=== PATIENT | female | born 1990 | race Caucasian/White ===

== ENCOUNTER 2017-11-03 15:20 | Outpatient (CLI) | payer OTHER | END 2017-11-03 15:21 | disposition home or self-care (01) | LOC: DTY/OP 15:20 | PROVIDERS: ATTEND Specialist | DX: Z01.818 Encounter for other preprocedural examination (principal); E66.01 Morbid (severe) obesity due to excess calories; Z71.3 Dietary counseling and surveillance | CPT/HCPCS: 97802 ==

== ENCOUNTER 2017-12-15 16:08 | Outpatient (CLI) | payer OTHER ==
[2017-12-15 18:32] LABS: BHCG - Serum Negative (NEGATIVE); Pregs Control Background? CLEAR/WHITE (CLR/WHITE); Pregs Control Bar Appear? YES (CONTROL BAR)
== END 2017-12-15 16:09 | disposition home or self-care (01) ==
LOC: LABBT 16:08
PROVIDERS: ATTEND Specialist
DX: Z01.812 Encounter for preprocedural laboratory examination (principal); E66.01 Morbid (severe) obesity due to excess calories
CPT/HCPCS: 84703

== ENCOUNTER 2017-12-15 17:00 | Inpatient (IN) | payer OTHER ==
[2017-12-15 16:39] VITALS: BMI 36.2
--- NOTE | 2017-12-16 07:12 | HP ---
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 She hopes to f inish this program 03/2018. 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 She has tr ied numerous weight loss efforts on her own without durable success. She has tried a balanced diet, intermittent fasting, Jerrell's diet, keto diet, used Topamax has lost 10-15 pounds without durable suc cess. She is followed by Dr. Bello. The patient lives in [place] and her family lives there too. She is single, 0, para 0. She works with a it trainer in [place] 2-3 times a week individual training, and has not enjoyed any successful weight loss. She has attended our bariatric seminar co nsidering weight loss options. She is interested in laparoscopic sleeve gastrectomy. She has a rela tive that attended our preoperative evaluation, but decided not to proceed with the operation. The p atient's comorbidities include hypertension and elevated triglycerides. She has experienced GERD rec ently since she has gained weight. She does not have any problems with GERD before she was overweigh t. She was recently started on a 2-week course of [id number] Nexium. It is too early to tell whether this helps her or not. She denies any biliary symptoms. She is 5 foot 1, 192 pounds, 36 BMI . She is followed by Dr. Wil Bello. TOBACCO: None. ALCOHOL: None. ALLERGIES: None. MEDICATIONS: Lisinopril 20 mg a day, multivitamins daily, [id number] Nexium daily. PAST MEDICAL HISTORY: Hypertension, elevated triglycerides, normal cholesterol, GERD since she has g ained weight. PAST SURGICAL HISTORY: Nasal surgery, left eye surgery. REVIEW OF SYSTEMS: Ten point noncontributory. PHYSICAL EXAMINATION: VITAL SIGNS: Height 5 foot 1, 192 pounds, 36.3 BMI, 94 heart rate, 127/45, and 98.2 degrees. HEENT: Unremarkable. LUNGS: Clear to auscultation. CARDIAC: Regular rate and rhythm without murmur or gallop. ABDOMEN: Soft, obese, nontender. EXTREMITIES: Unremarkable. No ankle edema, no venous stasis changes. Palpable pedal pulses. NEUROLOGIC: Intact. LYMPH: Axilla, neck, groins without lymphadenopathy. ASSESSMENT AND PLAN: Morbid obesity with comorbidities of hypertension, elevated triglycerides, and recent onset of reflux. She has attended our seminar and interested in laparoscopic sleeve gastrecto my. She understands the risks of infection, bleeding, reoperation, staple line leakage and understan ds that she will have to be an active participant, making good food choices to enjoy success in her [facility] journey. She understands that she can optimize her success with an exercise program. The yared mcclure has committed to the program, committed to follow up. She will be seeing the dietitian today and psychology today and we will schedule her surgery whenever she is ready.
--- NOTE | 2017-12-16 07:15 | ADD-HP ---
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 She has been through our bariatric seminar, s andre tobias preoperatively, seen a psychologist, obtained bariatric labs, and visited with our dietitian a nd now is ready to proceed with laparoscopic sleeve gastrectomy. She understands the risk of infecti on, bleeding, reoperation, and understands to be successful, she will need to make good food choices and participate in postoperative followup. She understands the risks and benefits and I have reviewe d the concerns with her in the office. Please see her recent history and physical details of her pas t history. When I initially saw her, 11/03/2017, 192 pounds, BMI of 36, it has essentially unchanged . The patient has been treated for hypertension, although her blood pressure is normal. She has his tory of GERD without esophagitis, but only related to weight gain and triglycerides. Plan is laparos copic sleeve gastrectomy. The patient is followed by JENIFER Pearce in [place]. PHYSICAL EXAMINATION: VITAL SIGNS: Height 5 feet 1 inches, 193 pounds, 36 BMI. LUNGS: Clear to auscultation. CARDIAC: Regular rate and rhythm without murmur or gallop. ABDOMEN: Soft and nontender. ASSESSMENT: Morbid obesity. PLAN: Laparoscopic sleeve gastrectomy.
[2017-12-21] MEDS ORDERED: Heparin 5,000 UNITS/ML VIAL ONE (08:44)
[2017-12-21] MEDS ORDERED: Scopolamine 1.5 mg/72 hour Patch ONE (08:44)
[2017-12-21] MEDS ORDERED: Midazolam HCl 2 mg/2 ml Vial ONE (08:45)
[2017-12-21] MEDS ORDERED: Ketorolac Tromethamine 30 MG/ML VIAL ONE (08:45)
[2017-12-21] MEDS ORDERED: cefOXitin 2 GM, Syringe 1 ML in Sterile Water 10 ML SLOW IVP SCH (09:00)
[2017-12-21] MEDS ORDERED: Ondansetron ODT 4 MG TAB ONE (10:45)
[2017-12-21] MEDS ORDERED: Bupivacaine HCl 0.5%/Epinephrine 1:200,000/PF 30 ml Vial ONE (11:12)
[2017-12-21] MEDS ORDERED: Fentanyl 100 MCG/2 ML VIAL ONE ×2 (11:16→13:20)
[2017-12-21] MEDS ORDERED: diphenhydrAMINE 50 MG/ML VIAL IVP PRN (11:57)
[2017-12-21] MEDS ORDERED: Morphine 4 MG/ML VIAL SLOW IVP PRN ×2 (11:57)
[2017-12-21] MEDS ORDERED: hydrALAZINE 20 MG/ML VIAL SLOW IVP PRN (11:57)
[2017-12-21] MEDS ORDERED: Dextrose 50% Abboject 50 ML SYRINGE SLOW IVP PRN (11:57)
[2017-12-21] MEDS ORDERED: Ondansetron HCl/PF 4 MG/2 ML Vial IVP PRN ×2 (11:57→12:42)
[2017-12-21] MEDS ORDERED: Dextrose 5% in Water 1,000 ML IV PRN (11:57)
[2017-12-21] MEDS ORDERED: Ondansetron ODT 8 MG TAB PO PRN (12:00)
[2017-12-21] MEDS ORDERED: Ondansetron ODT 8 MG TAB SL PRN (12:00)
[2017-12-21] MEDS ORDERED: Ondansetron ODT 4 MG TAB PO PRN (12:00)
[2017-12-21] MEDS ORDERED: Ondansetron ORAL SOLN. 4 MG/5 ML UDCUP PO PRN ×2 (12:00)
[2017-12-21] MEDS ORDERED: Lidocaine 1% PF 5 ML VIAL ONE (12:28)
[2017-12-21] MEDS ORDERED: Glycopyrrolate 0.2 MG/ML 5 ML SYRINGE ONE (12:28)
[2017-12-21] MEDS ORDERED: Succinylcholine Chloride 20 MG/ML 10 ml SYRINGE FS ONE (12:28)
[2017-12-21] MEDS ORDERED: Dexamethasone 20 MG/5 ML VIAL ONE (12:28)
[2017-12-21] MEDS ORDERED: PROPOFOL 200 MG/20 ML VIAL ONE (12:28)
[2017-12-21] MEDS ORDERED: Promethazine HCl 25 MG/ML VIAL IM PRN (12:42)
[2017-12-21] MEDS ORDERED: Promethazine HCl 25 MG/ML VIAL SLOW IVP PRN (12:42)
--- NOTE | 2017-12-21 13:27 | OP ---
DATE OF PROCEDURE: 12/21/2017 PREOPERATIVE DIAGNOSES: Morbid obesity, hypertension, BMI 36, 192 pounds. PROCEDURE: Laparoscopic sleeve gastrectomy, 36 Polish bougie, staple line within 4 cm of the pylorus , completion upper endoscopy. SURGEON: Maik Gomez M.D. ANESTHESIA: General. ESTIMATED BLOOD LOSS: Less than 10 mL. ANESTHESIA: 0.25% Marcaine with epinephrine 60 volume used. PROCEDURE: The patient was taken to the operating room where under general anesthesia, abdomen was p repared with ChloraPrep, draped in routine fashion. Local anesthetic infiltrated about skin and subc utaneous tissue about each port site. Total volume used. Supraumbilical incision made. Pneumoperit oneum to 15 mmHg obtained the Veress needle, replacing it with a 5 port and laparoscope inserted. Bi lateral far lateral subcostal incision made and 5 ports placed. Bilateral midclavicular upper abdomi nal incision made and a 15 port placed on the left and 12 port placed on the right. Subxiphoid incis ion made and a Nathansen liver retractor placed under laparoscopic visualization retracting the left lobe of the liver anteriorly. The liver was soft and malleable and not fatty. Generalized survey of the abdominal cavity was unremarkable. Gastrocolic ligament taken down adjacent to the greater curv ature of the stomach distally and gastrocolic ligament and gastrosplenic ligaments divided with the L igaSure along the greater curvature of the stomach up to the angle of His. Fundus mobilized. Ornamental Ironworking Supervisor ior attachments taken down with the LigaSure. Bougie placed by Anesthesia orally down the esophagus and into the stomach, visualizing the process laparoscopically, placing the tip of the bougie near th e pylorus. Initial sleeve gastrectomy performed firing the green load CARLO Endo stapler dividing the antrum within 4 cm of the pylorus, and advancing it along the greater curvature, along the bougie te ing care to not over tighten it near the incisura, adequate space was left respecting this. A gold f lawrence, then blue load stapler was used for the sleeve gastrectomy, staple line carried up, staying left lateral to the angle of His. The stomach removed through the 15 mm port site and fascia approximate d with 0 Vicryl GraNee needle under laparoscopic visualization. Closed this defect and sleeve gastre ctomy specimen removed and submitted to Pathology. Staple line inspected and noted to be hemostatic. I then performed an upper endoscopy, placed the endoscope per os and under direct visualization scott n the esophagus into the stomach, visualizing the pylorus. There was no bleeding. There was adequat e space and easy passage of the scope. Scope withdrawn deflating the stomach, noting good hemostasis and no problems as it was checked under water. This was visualized laparoscopically. Once the scop e was removed staple lines inspected. Good hemostasis noted. Liver retractor removed. Irrigant and pneumoperitoneum evacuated. Good hemostasis noted. All skin incisions approximated with interrupte d subdermal 4-0 Monocryl and DermaGlue applied.
[2017-12-21] MEDS: Ketorolac Tromethamine 30 MG/ML VIAL IVP SCH ×3 (14:44→23:02)
[2017-12-21] MEDS: Acetaminophen 1,000 MG in Premix Bag 1 BAG IVPB SCH ×3 (14:44→23:02)
[2017-12-21] MEDS: 1/2 NS w/KCL 20 mEq 1,000 ML IV SCH (18:06)
[2017-12-21] MEDS: Hydrocodone-Acetamin 15 ML UDCUP PO PRN ×2 (18:07→23:02)
[2017-12-21] MEDS ORDERED: Enoxaparin Sodium 40 MG/0.4 ML SYRINGE SC SCH (21:00)
[2017-12-22] MEDS: 1/2 NS w/KCL 20 mEq 1,000 ML IV SCH ×2 (03:18→03:19)
[2017-12-22 04:41] LABS: #Lymphocytes 2.4 thou/uL (1.20-3.40); #Monocytes 0.9 thou/uL (0.11-0.59); #Neutrophils 14.7 thou/uL (1.40-6.50); %Basophils 0.1 % (0.0-1.0); %Eosinophils 0.2 % (0.0-10.0); %Lymphocytes 13.1 % (21.0-51.0); %Monocytes 5.2 % (0.0-10.0); %Neutrophils 81.4 % (42.0-75.0); Hemoglobin 12.2 g/dL (12.0-16.0); Mean Corpuscular HGB CONC 34.7 g/dL (32.0-36.0); Mean Corpuscular Hemoglobin 31.7 pg (27.0-31.0); Mean Corpuscular Volume 91.3 fl (81.0-99.0); Mean Platelet Volume 5.7 fL (7.4-10.4); Platelet Count 306 thou/uL (130-400); RBC Distribution Width 11.4 % (11.5-14.5); Red Blood Cell (RBC) Count 3.87 mill/uL (4.20-5.40); White Blood Cell (WBC) Count 18.1 thou/uL (4.8-10.8)
[2017-12-22] MEDS: Hydrocodone-Acetamin 15 ML UDCUP PO PRN (04:51)
[2017-12-22] MEDS: Ketorolac Tromethamine 30 MG/ML VIAL IVP SCH (05:00)
[2017-12-22] MEDS: Acetaminophen 1,000 MG in Premix Bag 1 BAG IVPB SCH (05:01)
[2017-12-22 05:03] LABS: Anion Gap 11 mmol/L (10-20); BUN (Urea Nitrogen) 8 mg/dL (7.0-18.7); Calc. Creatinine Clearance 163 mL/min (70-130); Carbon Dioxide 21 mmol/L (22-29); Chloride 108 mmol/L (98-107); Estimated GFR-MDRD Greater than 90; Glucose 96 mg/dL (70-105); Potassium 4.3 mmol/L (3.5-5.1); Sodium 136 mmol/L (136-145)
--- NOTE | 2017-12-22 06:38 | PRG ---
DATE OF SERVICE: 12/22/2017 HISTORY: Ms. Lang is doing well today. She is status post laparoscopic sleeve gastrectomy yester day. She has ambulated well. She is tolerating liquids. She has not had any nausea or vomiting. PHYSICAL EXAMINATION: VITAL SIGNS: Temperature 98.2 degrees, 70, 16, 90/63. LABORATORY: This morning her white count is 18, hemoglobin 12. Basic metabolic profile essentially normal. LUNGS: Clear to auscultation. CARDIAC: Regular rate and rhythm without murmur or gallop. ABDOMEN: Soft, nontender, good bowel sounds. Surgical wounds are clean and dry. ASSESSMENT AND PLAN: Doing well status post laparoscopic sleeve gastrectomy. We will plan discharge home today. She will advance her diet per bariatric protocol. She will take Lortab elixir for pain . She will take Ultram as needed and Tylenol as needed. She will take Prilosec for 3 months. Donya w up in my office in 1-2 weeks.
[2017-12-22] MEDS ORDERED: traMADol HCl 50 MG TAB PO PRN ×2 (07:00)
[2017-12-22] MEDS ORDERED: Acetaminophen 500 MG TAB PO PRN (07:00)
[2017-12-22 08:26] VITALS: BP 97/63; TEMP 97.5
[2017-12-22] MEDS ORDERED: Pantoprazole 40 MG VIAL IVP SCH (09:00)
--- NOTE | 2017-12-22 11:19 | DIS ---
DATE OF ADMISSION: 12/21/2017 DATE OF DISCHARGE: 12/22/2017 DISCHARGE DIAGNOSES: Morbid obesity, 5 foot, 192 pounds, 36 body mass index, hypertension, elevated triglycerides, normal cholesterol, gastroesophageal reflux disease. Since she has gained weight, no prior history of premorbid obesity and GERD. 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 She has tried numerous weight loss efforts without durable success and attended our bariatric seminar and went to our preoperative bariatric options, programs and evaluation and pre sents for laparoscopic sleeve gastrectomy and undergoing that procedure and postoperatively convalesc ing to do well. She was discharged home with [id number] Tylenol or ibuprofen (on rare occasion ) for pain, otherwise using Ultram and/or Lortab Elixir for discomfort. Diet and activity as tolerat ed. No lifting restrictions. Follow up in my office in 2 weeks.
== END 2017-12-22 10:43 | disposition home or self-care (01) | DRG 621 ==
LOC: SURG A 12-21 07:58
PROVIDERS: ADMIT Specialist; ATTEND Specialist
PROC: 0DB64Z3 Excision of Stomach, Percutaneous Endoscopic Approach, Vertical (ICD-10-PCS; principal; 2017-12-21)
DX: E66.01 Morbid (severe) obesity due to excess calories (principal); I10 Essential (primary) hypertension; Z68.36 Body mass index [BMI] 36.0-36.9, adult; K21.9 Gastro-esophageal reflux disease without esophagitis
CPT/HCPCS: 36415; 80048; 85025; 88307; 88312; 94760; 96374; A4216; J0131; J0670; J0694; J1100; J1644; J1650; J1885; J2001; J2250; J2270; J2704; J3010; Q0162

== ENCOUNTER 2018-06-21 07:37 | Observation (INO) | payer OTHER ==
[2018-06-21 07:49] LABS: #Basophils 0.2 thou/uL (0.0-0.2); #Eosinphils 0.2 thou/uL (0.0-0.7); #Lymphocytes 5.4 thou/uL (1.20-3.40); #Monocytes 0.8 thou/uL (0.11-0.59); #Neutrophils 5.8 thou/uL (1.40-6.50); %Basophils 1.3 % (0.0-1.0); %Eosinophils 1.6 % (0.0-10.0); %Lymphocytes 43.6 % (21.0-51.0); %Monocytes 6.2 % (0.0-10.0); %Neutrophils 47.3 % (42.0-75.0); Hemoglobin 15.3 g/dL (12.0-16.0); Mean Corpuscular HGB CONC 31.3 g/dL (32.0-36.0); Mean Corpuscular Hemoglobin 29.2 pg (27.0-31.0); Mean Corpuscular Volume 93.5 fL (78.0-98.0); Mean Platelet Volume 6.4 fL (7.4-10.4); Platelet Count 336 thou/uL (130-400); RBC Distribution Width 12.3 % (11.5-14.5); Red Blood Cell (RBC) Count 5.25 mill/uL (4.20-5.40); White Blood Cell (WBC) Count 12.3 thou/uL (4.8-10.8)
[2018-06-21 08:12] LABS: ALT (SGPT) Less than 7 U/L (8-55); AST (SGOT) 12 U/L (5-34); Albumin 4.2 g/dL (3.5-5.0); Alkaline Phosphatase 65 U/L (40-150); Anion Gap 16 mmol/L (10-20); BUN (Urea Nitrogen) 9 mg/dL (7.0-18.7); Bilirubin, Total 0.4 mg/dL (0.2-1.2); CK (CPK) 33 U/L (29-168); Calc. Creatinine Clearance 0 mL/min (70-130); Calcium 9.2 mg/dL (7.8-10.44); Carbon Dioxide 17 mmol/L (22-29); Chloride 111 mmol/L (98-107); Estimated GFR-MDRD 84; Globulin 2.9 g/dL (2.4-3.5); Glucose 111 mg/dL (70-105); Potassium 3.7 mmol/L (3.5-5.1); Protein, Total 7.1 g/dL (6.0-8.3); Sodium 140 mmol/L (136-145)
[2018-06-21 08:16] LABS: CKMB 0.3 ng/mL (0-6.6); Troponin I Less than 0.010 ng/mL (< 0.028)
[2018-06-21 08:53] LABS: BHCG - Serum Negative (NEGATIVE); Pregs Control Background? CLEAR/WHITE (CLR/WHITE); Pregs Control Bar Appear? YES (CONTROL BAR)
[2018-06-21 08:55] LABS: Bilirubin Small (Negative); Blood, Urine Negative (Negative); Clarity CLOUDY (Clear); Glucose, Urine (Dipstick) Negative (Negative); Leukocyte Small (Negative); Nitrite Negative (Negative); Protein, Urine (Dipstick) 100 mg/dL (Neg-Trace)
[2018-06-21 08:56] LABS: Bacteria/HPF Rare-Few HPF (None Seen); Pregnancy Test - Urine (BHCG) Negative (Negative); Pregu Control Background? CLEAR/WHITE (CLR/WHITE); Pregu Control Bar Appear? YES (CONTROL BAR)
[2018-06-21 08:57] LABS: Pathc Cast-AUWi Flag 5.23 (0-2.49)
[2018-06-21 09:08] LABS: Hyaline Casts/LPF 0-3 HYALINE CAST LPF (0-3 Hyaline); Manual Microscopic Reviewed? No Path Casts Seen; RBC/HPF 0-3 HPF (0-3); Renal Epithelial 0-3 HPF (0-3); Transitional Epithelial 0-3 HPF (0-3)
--- NOTE | 2018-06-21 09:44 | RAD ---
CHEST 2 VIEWS: HISTORY: Syncope. COMPARISON: None. FINDINGS: Lungs are clear. No pneumothorax or effusion. Cardiac silhouette and mediastinal contours are withi n normal limits. No acute osseous abnormality. Surgical clips along the expected location of the st omach. IMPRESSION: No acute intrathoracic abnormality. POS: [facility]
[2018-06-21] MEDS ORDERED: Metoclopramide HCl 10 MG/2 ML VIAL ONE (09:46)
[2018-06-21] MEDS ORDERED: Ondansetron PF 4 MG/2 ML Vial IVP PRN (11:39)
[2018-06-21] MEDS ORDERED: Acetaminophen 325 MG TAB PO PRN (11:39)
[2018-06-21] MEDS ORDERED: Ondansetron ODT 4 MG TAB PO PRN (11:39)
[2018-06-21 11:57] VITALS: BMI 25.9
[2018-06-21] MEDS: Sodium Chloride 0.9% 1,000 ML IV SCH ×2 (12:50→19:50)
--- NOTE | 2018-06-21 13:23 | PDOC.EVN ---
Event Note - Event Note Event Note: I have interviewed, examined and discussed pt with Alejandrina LUCIANO regarding near syncopal event. Reviewed all pertinent hx, labs and radiographs. Plan for IVF's, telemetry monitoring and 2D echo. Please see dictated H&P for full details.
[2018-06-21] MEDS: Thiamine HCl 200 MG/2 ML VIAL SLOW IVP SCH (14:21)
--- NOTE | 2018-06-21 15:35 | HP ---
DATE OF ADMISSION: 06/21/2018 Patient was seen approximately 11:00 a.m. CODE STATUS: FULL. CHIEF COMPLAINT: Near syncope, nausea and vomiting. 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 She was able to sit down and initially felt better, so she went onto the next room where she had one episode of vomiting. She reports she immediately felt the need to have a bowel movement and on the way to the bathroom, she felt lightheaded again and passed out. Coworkers denied that she hit her head, reported bringing her back to the nurse's station and tried to take her vitals. At that point, her heart rate was in the 20s to 30s for several minutes and they had difficulty obtaining her blood pressure. Nursing personnel called a lamont ayala and she was transported to the ER where her vital signs returned to normal, pulse initially was 82, respirations were 18 and blood pressure was 92/61. Currently , she is feeling better. Denies any complaints at this time. She denies any history of any similar events in the past. Past medical history includes a gastric sleeve surgery in 11/2017 and reports she has lost close to 60 pounds. While she was in the ER, EKG and labs were unremarkable. She reports that her family and friends over the last week have had either the flu or the stomach bug. She was admitted to the observation unit for further management. PAST MEDICAL HISTORY: She reports she was diagnosed with hypertension prior to her gastric sleeve surgery. Since the surgery, she has not needed to take any medication. PAST SURGICAL HISTORY: Positive for a gastric sleeve in November of this year. Denies any other surgical or medical history. SOCIAL HISTORY: Patient lives at home. Does not smoke. She is a social drinker. Denies any illegal drug use. FAMILY HISTORY: Pertinent only for several different kinds of cancer. No history of any cardiac history or strokes. REVIEW OF SYSTEMS: CONSTITUTIONAL: Negative review of systems. HISTORIAN: Denies chills or fever. Denies eye pain or vision changes. ENT: Denies any rhinorrhea, sore throat, or voice changes. CARDIOVASCULAR: Denies chest pain. Denies palpitations. RESPIRATORY: Denies cough, denies shortness of breath. GASTROINTESTINAL: Denies abdominal pain, denies constipation, denies diarrhea. Reports some nausea this morning. Reports one episode of vomiting, denies any diarrhea over the last several days as well. GENITOURINARY: She denies any dysuria or hematuria. MUSCULOSKELETAL: Denies any back pain, denies fall. Denies injury. SKIN: Denies any rashes. Denies any skin changes. NEUROLOGIC: Reports brief presyncope. Currently denies any headache , mental status changes, paresthesias or sensory changes. LYMPHATIC: Denies abnormal blood clotting. PHYSICAL EXAMINATION: CONSTITUTIONAL: Vital signs reviewed. On time of admission, blood pressure was up to 130/75, pulse was 80, respirations were 16, temperature was 98.0, pulse ox 98% on room air. GENERAL APPEARANCE: Patient appears nontoxic and pain free. The patient is alert and oriented to person, place and time. HEENT: Head: Atraumatic and normocephalic. Eyes: Equal and round, reactive to light. Extraocular muscles are intact. ENT: Mucous membranes are moist. Throat appears normal in color. Tonsils are normal in size. NECK: Full range of motion. Trachea is midline. RESPIRATORY/CHEST: No respiratory distress. Breath sounds are clear bilaterally. CARDIOVASCULAR: Heart rhythm is normal. Heart sounds are normal. ABDOMEN: Female bowel sounds in all 4 quadrants. No distention or masses. No peritoneal signs. BACK: Normal range of motion, no tenderness. EXTREMITIES: Upper extremity sensation pulses and range of motion is equal bilaterally. Lower extremity sensation pulses and range of motion is equal bilaterally. NEUROLOGIC: Speech is normal. Gait is normal. Cranial nerves II-XII appear intact. No focal deficits or sensory deficits. SKIN: Warm, dry, normal in color. No rashes are noted. LABORATORY DATA: Sodium is 140, potassium is 3.7, chloride is 111, carbon dioxide is 17, gap is 16, BUN is 9, creatinine is 0.82, GFR is 84, glucose is 111 and calcium 9.2. AST is 12, ALT is less than 7. White blood cell count is 12.3, hemoglobin is 15.3, hematocrit is 49.1 and platelet count is 336. Urinalysis, small amount of leukocytes, 100+ protein, high ketones, bilirubin is small. White blood cell count 4-6, squamous 11-20. IMAGING DATA: EKG shows a normal sinus rhythm, 72 beats per minute. No ectopics. Conduction is normal. ST segments are normal. Normal T waves. Chest x-ray showed no acute findings. ASSESSMENT AND PLAN: Near syncope. Plan includes continuous fluids, Reglan as needed. She will receive cardiac monitoring and observation and we will obtain an echocardiogram. Disposition will depend on clinical course. [facility]
[2018-06-21 20:25] LABS: Amphetamine Not Detected (NotDetected); Barbiturates Screen Not Detected (NotDetected); Benzodiazepine Screen Not Detected (NotDetected); Cocaine Metabolite Screen Not Detected (NotDetected); Medtox Control Line Valid? VALID (VALID); Medtox Reader # READER 4; Methadone Not Detected (NotDetected); Methamphetamine Not Detected (NotDetected); Opiate Screen Not Detected (NotDetected); Oxycodone Screen Not Detected (NotDetected); Phencyclidine (PCP) Not Detected (NotDetected); THC/Cannabinoid Screen Not Detected (NotDetected); Tricyclic Screen Not Detected (NotDetected)
--- NOTE | 2018-06-21 20:41 | PDOC.EVN ---
Event Note - Event Note Event Note: called for tachycardia HR 130s SBP 119 pt feeling palpitations but otherwise no c/o rev chart check EKG, CBC, BMP, TSH, ddimer d/w bedside nsg
[2018-06-21 22:28] LABS: #Eosinphils 0.1 thou/uL (0.0-0.7); #Lymphocytes 3.1 thou/uL (1.20-3.40); #Monocytes 0.8 thou/uL (0.11-0.59); #Neutrophils 7.3 thou/uL (1.40-6.50); %Basophils 0.1 % (0.0-1.0); %Eosinophils 1.1 % (0.0-10.0); %Lymphocytes 27.6 % (21.0-51.0); %Neutrophils 64.2 % (42.0-75.0); Hemoglobin 13.3 g/dL (12.0-16.0); Mean Corpuscular Volume 93.6 fL (78.0-98.0); Mean Platelet Volume 6.4 fL (7.4-10.4); Platelet Count 259 thou/uL (130-400); RBC Distribution Width 12.2 % (11.5-14.5); Red Blood Cell (RBC) Count 4.45 mill/uL (4.20-5.40); White Blood Cell (WBC) Count 11.3 thou/uL (4.8-10.8)
[2018-06-21 22:35] LABS: Amphetamine Not Detected (NotDetected); Barbiturates Screen Not Detected (NotDetected); Benzodiazepine Screen Not Detected (NotDetected); Cocaine Metabolite Screen Not Detected (NotDetected); Medtox Control Line Valid? VALID (VALID); Medtox Reader # READER 1; Methadone Not Detected (NotDetected); Methamphetamine Not Detected (NotDetected); Oxycodone Screen Not Detected (NotDetected); Phencyclidine (PCP) Not Detected (NotDetected); THC/Cannabinoid Screen Not Detected (NotDetected); Tricyclic Screen Not Detected (NotDetected)
[2018-06-21 23:00] LABS: ALT (SGPT) Less than 7 U/L (8-55); AST (SGOT) 9 U/L (5-34); Albumin 3.5 g/dL (3.5-5.0); Alkaline Phosphatase 55 U/L (40-150); Anion Gap 7 mmol/L (10-20); BUN (Urea Nitrogen) 11 mg/dL (7.0-18.7); Bilirubin, Total 0.4 mg/dL (0.2-1.2); Calc. Creatinine Clearance 116 mL/min (70-130); Calcium 8.5 mg/dL (7.8-10.44); Carbon Dioxide 23 mmol/L (22-29); Chloride 111 mmol/L (98-107); Estimated GFR-MDRD Greater than 90; Globulin 2.2 g/dL (2.4-3.5); Glucose 89 mg/dL (70-105); Potassium 3.6 mmol/L (3.5-5.1); Protein, Total 5.7 g/dL (6.0-8.3); Sodium 137 mmol/L (136-145)
[2018-06-22 00:56] LABS: Amphetamine Not Detected (NotDetected); Barbiturates Screen Not Detected (NotDetected); Benzodiazepine Screen Not Detected (NotDetected); Cocaine Metabolite Screen Not Detected (NotDetected); Medtox Control Line Valid? VALID (VALID); Medtox Reader # READER 4; Methadone Not Detected (NotDetected); Methamphetamine Not Detected (NotDetected); Opiate Screen Not Detected (NotDetected); Oxycodone Screen Not Detected (NotDetected); Phencyclidine (PCP) Not Detected (NotDetected); THC/Cannabinoid Screen Not Detected (NotDetected); Tricyclic Screen Not Detected (NotDetected)
[2018-06-22 01:18] LABS: RBC/HPF 0-3 HPF (0-3); Squamous Epithelial 0-3 HPF (0-3); WBC/HPF 0-3 HPF (0-3)
[2018-06-22 01:19] LABS: Bacteria/HPF Rare-Few HPF (None Seen); Crystals/HPF None Seen HPF (Negative); Hyaline Casts/LPF NONE SEEN LPF (0-3 Hyaline); Other Casts/LPF None Seen LPF (0-3 Hyaline); Oval Fat Bodies/HPF None Seen HPF (None Seen); Renal Epithelial None Seen HPF (0-3); Sperm/HPF None Seen HPF (None Seen); Transitional Epithelial NONE SEEN HPF (0-3); Trichomonas/HPF None Seen HPF (None Seen); Yeast-All Forms None Seen HPF (None Seen)
[2018-06-22] MEDS: Sodium Chloride 0.9% 1,000 ML IV SCH ×2 (02:29→10:51)
[2018-06-22 02:33] LABS: Clarity Clear (Clear); Leukocyte Negative (Negative); Nitrite Negative (Negative); Specific Gravity, Urine 1.009 (1.002-1.036)
[2018-06-22 02:34] LABS: Bilirubin Negative (Negative); Blood, Urine Negative (Negative); Glucose, Urine (Dipstick) Negative (Negative); Protein, Urine (Dipstick) Negative (Neg-Trace)
[2018-06-22 11:19] LABS: Opiate Screen Not Detected (NotDetected)
[2018-06-22 12:14] VITALS: TEMP 98.4
[2018-06-22] MEDS: Thiamine HCl 200 MG/2 ML VIAL SLOW IVP SCH (15:22)
[2018-06-22 15:35] VITALS: BP 114/78
--- NOTE | 2018-06-22 17:11 | CON ---
DATE OF CONSULTATION: 06/22/2018 REASON FOR CONSULTATION: Chest presyncope. HISTORY OF PRESENT ILLNESS: Ms. Lang is a very pleasant 28-year-old white female. 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 She was rounding on her patien ce, she felt lightheaded and nauseated, was able to sit down, felt a little better, went to the next room and vomited once. She felt the need she was going to have a bowel movement and she was on her w ay to the bathroom, felt lightheaded again and felt like her legs would not work and she was sinking to the ground. She did not completely lose consciousness, but when they found her, she could not mov e. She looked pale white. Her coworkers found her, brought her to the nurse's station were her bloo d pressure was unable to be checked, could not get it and her heart rate was in the 30s. She eventua lly was taken down to the ER or her blood pressure came back up to the 90s over 60s and heart rate in the 80s and felt much better, close to normal. She has had episodes of syncope in the past one time she was checking her blood sugar in school just to learn how to do it. She poked her finger and she had a syncopal spell, very similar to what a vasovagal spell would. She also had another spell yara ier while she was checking the patient's blood pressure for the first time. She felt lightheaded and eventually passed out. She also had gastric sleeve done in 11/2017 and she has lost about 60 pounds , but she is very close to her ideal weight. PAST MEDICAL HISTORY: Hypertension, but this has resolved after weight loss. PAST SURGICAL HISTORY: Gastric sleeve earlier this year. SOCIAL HISTORY: Lives at home. No tobacco or drugs. Social alcohol use. FAMILY HISTORY: Noncontributory. OUTPATIENT MEDICATIONS: Multivitamin daily. ALLERGIES: No known drug allergies. PHYSICAL EXAMINATION: VITAL SIGNS: Temperature 98.4, pulse 86, respiration rate 12, satting 95% on room air, blood pressur e 114/78. GENERAL: Awake, alert, oriented x3, in no distress. HEENT: Normocephalic. NECK: Supple. LUNGS: Clear. CARDIOVASCULAR: S1, S2, no S3, S4, no murmurs. ABDOMEN: Soft, positive bowel sounds. EXTREMITIES: No edema. SKIN: Warm and dry. LABORATORY WORK: Reviewed. CBC with a white count of 12, hemoglobin of 15, hematocrit 49, platelet count of 236. Coags: D-dimer is undetectable. Chemistries unremarkable except for glucose of 111 d own to 89 and normal LFTs. Troponins are negative. Sign of is negative. TSH is normal. Albumin of 3.5. UA was mj, cloudy with trace ketones, small amount of bilirubin, 4-6 white cells, 11-20 squamous epithelial cells. A repeat after IV fluids was completely normal. Toxicology was co mpletely undetectable. Echocardiogram was reviewed at an EF of 50%-55%, mild MR, mild TR. Normal diastolic function. Chest x-ray was unremarkable. Telemetry, she had episodes of sinus tachycardia after the initial episode of what appeared to be vas ovagal syncope. ASSESSMENT AND PLAN: 1. Vasovagal syncope: Most likely her episode was related to vasovagal response causing her to beco me hypotensive and bradycardic. This is normal and is not treated with a pacemaker. The ideal treat ment is maintained well hydrated and to try to avoid situations that would cause her to have syncope. She feels much better. She received 4 bags of normal saline and she has been urinating quite well. No problems. She feels back to normal, a lot of family members have been developing a GI bug as we ll as upper respiratory infection. This was going on with her and that is why white count is a littl e bit high. 2. I would recommend that she be off of work for the next 5 days, come back to work on day #6 if krista berger looks back to normal. 3. We would recommend she be discharged home later today and we will set her up for a treadmill stre ss test as an outpatient to make sure that her physical ability is still there. 4. We would recommend no further weight loss. She is at her ideal weight at this time. We will jus t have her start a more healthy diet to maintain weight rather to lose weight. 5. Maintain hydration. Thank you for letting us participate in the care of your patient. We will sign off. Please call for any questions. We will follow up with a treadmill stress as an outpatient.
--- NOTE | 2018-06-23 09:19 | DIS ---
DATE OF ADMISSION: 06/21/2018 DATE OF DISCHARGE: 06/22/2018 CONSULTATIONS: Dr. Mayo for cardiology. CODE STATUS: FULL. PRIMARY CARE PHYSICIAN: PROCEDURES: Patient had an echocardiogram which showed an ejection fraction of 50%-55%, mild mitral regurgitation is present. Mild tricuspid regurgitation is present. Patient had chest x-ray with no acute abnormalities. Patient had labs drawn. Findings included white blood cell count 11.3, hemoglo bin 13.3, hematocrit 41.6, platelet count is 259. She had a D-dimer which was negative. Chemistry: Sodium was 137, potassium was 3.6. Gap was 7. BUN is 11, creatinine is 0.74. GFR is greater than 90. Troponin was negative. CK-MB was 0.3. TSH was 2.6. Serum was negative. UA with UA protein positive, ketones positive, leukocyte esterase small, white blood cell count in the urine 4.4 to 6 and the squamous cells 11 to 21. UDS was performed and was negative. Influenza was negative. Urine culture was done and was negative. DISCHARGE DIAGNOSIS: Presyncope most likely vasovagal reaction. REVIEW OF SYSTEMS: Patient was seen by me this morning and review of systems was done and is negativ e unless otherwise noted. PHYSICAL EXAMINATION: VITAL SIGNS: Temperature 98.4, pulse 86, respirations are 12, O2 sats were 95 on room air, blood pre ssure 114/78. CONSTITUTIONAL: Patient was alert, oriented to person, place, and time. HEAD: Atraumatic, normocephalic head. EYES: Pupils equally round and reactive to light. Conjunctivae normal. Sclerae normal. ENT: Moist mucous membranes. No bleeding from naris. NECK: Trachea is midline. No JVD. RESPIRATORY: Clear to auscultation. No respiratory distress. CARDIOVASCULAR: Normal S1, S2. Normal rhythm and rate. ABDOMEN: Female, nontender. Bowel sounds present x4. BACK: No CVA tenderness. EXTREMITIES: Upper extremities, strength normal bilaterally. Pulses and sensation are equal. Lower extremities, strength is equal bilaterally. Pulses and sensation intact. No edema noted. NEUROLOGICAL: No focal findings. SKIN: Warm, dry, and normal in color. 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 She was able to sit down and initially felt better, but when she went into the tn xt room feelings returned, she had one episode of vomiting. She reports she immediately felt a need urge to have a bowel movement was on the way to the bathroom when she felt lightheaded again and had a presyncopal episode. Coworkers denied that she hit her head and [facility]. Initially, her pulse was in the 20s to 30s took several tries to get her blood pressure, so o ccult lamont lucy was called and she was transported to the ER, where her vital signs returned to norm al. Since that time, she is denying any symptoms last night. She did have a transient episode of ta chycardia. EKG was done. Vital signs were taken and she had a pulse in the 120s, but was short-live d and returned back to normal rhythm and rate today. She denies any symptoms. Cardiology was consul jason today and they will see her on an outpatient basis and perform a stress test. , patient is on a multivitamin and that will be restarted. ALLERGIES: No known allergies. CONDITION: Stable. She will be discontinued to home referred to her PCP within 1 week and outpatien t referral to Dr. Mayo who states they will call her with an appointment for an outpatient stress t est.
--- NOTE | 2018-06-24 12:17 | EKG ---
Test Reason : SYNCOPE Blood Pressure : / mmHG Vent. Rate : 072 BPM Atrial Rate : 072 BPM P-R Int : 134 ms QRS Dur : 082 ms QT Int : 384 ms P-R-T Axes : -19 028 032 degrees QTc Int : 420 ms Normal sinus rhythm Normal ECG Confirmed by ASPEN BUNN ([id number]), script editor JING JALLOH ([id number]) on 06/24/2018 12:17:09 PM Referred By: Confirmed By:ASPEN BUNN
== END 2018-06-22 17:30 | disposition home or self-care (01) ==
LOC: ERS 07:37 → 2SW 11:28
PROVIDERS: ADMIT Family Medicine; ATTEND Family Medicine
DX: R55 Syncope and collapse (principal)
CPT/HCPCS: 36415; 71046; 80053; 80306; 81003; 81015; 81025; 82550; 82553; 84443; 84484; 84703; 85025; 85379; 87086; 87804; 93005; 93010; 93306; 94760; 96361; 96365; 96375; 96376; G0378; J2765; J3411

== ENCOUNTER 2022-07-16 05:50 | Day surgery (SDC) | payer OTHER ==
[2022-07-15 16:45] VITALS: BMI 24.5
[2022-07-16] MEDS ORDERED: Acetaminophen 500 MG TAB ONE (06:16)
[2022-07-16] MEDS ORDERED: Ketorolac Tromethamine 30 MG/ML VIAL ONE (06:16)
[2022-07-16] MEDS ORDERED: Bupivacaine HCl 0.5%/Epinephrine 1:200,000/PF 30 ml Vial ONE (06:25)
[2022-07-16] MEDS ORDERED: CEFAZOLIN 2 GM VIAL ONE (07:15)
[2022-07-16] MEDS ORDERED: Sodium Chloride 0.9% 100 ML ONE (07:15)
[2022-07-16] MEDS ORDERED: Phenylephrine 10 MG/ML VIAL ONE (07:16)
[2022-07-16] MEDS ORDERED: Dexamethasone 20 MG/5 ML VIAL ONE (07:16)
[2022-07-16] MEDS ORDERED: Ondansetron PF 4 MG/2 ML Vial ONE (07:16)
[2022-07-16] MEDS ORDERED: NEOSTIGMINE 3 MG/3 ML SYR 3 MG/3 ML SYRINGE ONE (07:16)
[2022-07-16] MEDS ORDERED: Rocuronium Bromide 10 MG/ML (10ML VIAL) ONE (07:16)
[2022-07-16] MEDS ORDERED: PROPOFOL 200 MG/20 ML VIAL ONE (07:16)
[2022-07-16] MEDS ORDERED: Glycopyrrolate 0.2 MG/ML 5 ML SYRINGE ONE (07:16)
[2022-07-16] MEDS ORDERED: fentaNYL PF 100 MCG/2 ML SYRINGE ONE (07:23)
[2022-07-16] MEDS ORDERED: HYDROmorphone 0.5 MG/0.5 ML SYRINGE ONE (07:23)
[2022-07-16] MEDS ORDERED: FENTANYL 50 MCG/ML 1 ML VIAL ONE (08:30)
[2022-07-16] MEDS ORDERED: Scopolamine 1.5 mg/72 hour Patch ONE (08:37)
== END 2022-07-16 10:25 | disposition home or self-care (01) ==
LOC: SDC 05:50
PROVIDERS: ATTEND Specialist
PROC: 0FT44ZZ Resection of Gallbladder, Percutaneous Endoscopic Approach (ICD-10-PCS; principal; 2022-07-16)
DX: K80.12 Calculus of gallbladder with acute and chronic cholecystitis without obstruction (principal); Z98.84 Bariatric surgery status
CPT/HCPCS: 88304; C1889; J1100; J1170; J1885; J2370; J2405; J2704; J3010; J3490